=== PATIENT | male | born 1980 | race Caucasian/White ===

== ENCOUNTER 2017-06-01 10:05 | Emergency (ER) | payer SELFPAY ==
[~2017-06-01] VITALS: Ht 175.3 cm; Wt 65.8 kg
--- NOTE | 2017-06-01 10:51 | ED PSYCHIATRIC COMPLAINT ---
History of Present Illness General Chief Complaint: Psychiatric Related Complaint Stated Complaint: +SI Source: patient Exam Limitations: no limitations Allergies Uncoded Allergies: SEAFOOD (Severe, ANAPHYLAXIS 06/01/17) Triage Note: 36 Y/O MALE STATING HE HAS BEEN OFF LITHIUM X FEW WEEKS; HAS BEEN ON MED FOR 8 YEARS. STATES HE WAS RECENTLY EVALUATED AT [facility] AND STATES HE WAS SUICIDAL AT THAT TIME HOWEVER WAS DISCHARGED. PT STATES HE CONTINUES TO FEEL SUICIDAL AND NOW HAS A PLAN. STATES HE FELT GOOD ON HIS LITHIUM AND NEEDS ANOTHER PRSCRIPTION, "I WAS STABLE ON THAT". ALSO REPORTS ETOH AND COCAINE USE, MOST RECENT YESTERDAY. STATES HE HAD A SEIZURE YESTERDAY BUT WAS NOT EVALUATED FOR SAME; REPORTS HX SEIZURES "FROM THE DRUGS". REPORTS DECREASED APPETITE/PO INTAKE. PT DENIES HI. CALM AND COOPERATIVE. Triage Nurses Notes Reviewed? yes Onset: Gradual Duration: worse persistent since (1 MONTH) Timing: recent history Severity: severe Severity Numbers: 10 HPI: Patient is a 36-year-old male with history of bipolar, supposed to be on lithium presenting to the emergency department with chief complaint suicidal ideation. Patient HAS been off lithium for the past one month. He would like to start his medication back up. Denies any alcohol use. He does report that his been buying a synthetic medication on the street, something similar to a viral to help with his symptoms. He reports that if he leaves today he will kill himself by overdosing on medication. Patient denies any homicidal ideation. Patient looking for help. Patient also notes that he has a court date today and relates some distended no to court to verify his location. (FLOR BLACK,KARLEY) Vital Signs & Intake/Output Vital Signs & Intake/Output Vital Signs Date Time Temp Pulse Resp B/P B/P Pulse O2 O2 Flow FiO2 Mean Ox Delivery Rate 06/01 1537 97.1 66 18 121/66 98 Room Air 06/01 1152 Room Air 06/01 1008 96.0 96 18 152/79 98 Room Air Past History Travel History Traveled to [place] past 21 day No Medical History Any Pertinent Medical History? 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 No (KARLEY ESPOSITO) Review of Systems Review of Systems Constitutional: Reports: no symptoms. Comments Review of systems: See HPI, All other systems negative. Constitutional, no chills fever or weight loss HEENT: No visual changes no sore throat no congestion Cardiovascular: No chest pain ,palpitation , orthopnea or ankle swelling Skin, no jaundice no rashes Respiratory: No dyspnea cough sputum or hemoptysis GI: No nausea no vomiting : No dysuria No hematuria Muscle skeletal: no back pain, no neck pain, Neurologic: No numbness no confusion, no headaches Psych: Positive stress and anxiety, positive depression Heme/endocrine: No bruising no bleeding no polyuria or polydipsia Immunology: No splenectomy or history of AIDS (KARLEY ESPOSITO) Physical Exam Physical Exam General Appearance: well developed/nourished, no apparent distress, alert, awake , comfortable Neurological/Psychiatric: oriented x 3 Comments: Well-developed well-nourished person in no acute distress HEENT: Pupils equally round and reactive to light and accommodation. Nose is atraumatic. External auditory canal and Tympanic membranes clear. Pharynx normal. No swelling or edema. Neck: Normal inspection Back: Nontender Cardiovascular: Regular rate and rhythms no murmurs rubs or gallops, normal JVP Respiratory: Chest nontender. No respiratory distress.breath sounds clear to auscultation bilaterally Extremity: No edema Neuro: Alert oriented x3 Skin: No appreciable rash on exposed skin, skin is warm and dry. Psych: Mood and affect is normal, memory and judgment is normal. SAD PERSONS SAD PERSONS Response Value Male Sex? yes 1 Depression/Hopelessness? yes 2 Excessive Ethanol/Drug Use? yes 1 Social Support? has support 0 Stated Future Intent? yes 2 Total 6 SAD PERSONS Done? yes (KARLEY ESPOSITO) Progress Differential Diagnosis: drug intoxication, drug overdose, drug withdrawal, electrolyte abnormality, MALINGERING Comments: 06/01/2017 8:12:52 PM Patient deemed not a harm to self by crisis. Patient discharged, given outpatient resources. Patient was discharged by Dr. Woods at 4:30 PM, crisis updated Dr. Woods regarding this patient's disposition and Branden Woods MD discharge the patient without speaking to this provider. (FLOR BLACK,KARLEY) Plan of Care: Orders Procedure Date/time Status Regular Diet 06/01 D Active EKG 06/01 1404 Active Add-on Test (ER Only) 06/01 1220 Active LITHIUM 06/01 1210 Complete Continuous Observation Monitor 06/01 1050 Active URINE DRUG SCREEN FOR ER ONLY 06/01 1050 Complete ETHANOL 06/01 1050 Complete COMPREHENSIVE METABOLIC PANEL 06/01 1050 Complete CBC WITHOUT DIFFERENTIAL 06/01 1050 Complete ED CRISIS PSYCH CONSULT 06/01 1050 Active Laboratory Tests 06/01/17 1332: Urine Opiates Screen < 100.00, Methadone Screen < 40, Barbiturate Screen < 60, Ur Phencyclidine Scrn < 6.00, Amphetamines Screen 140, U Benzodiazepines Scrn < 85, Urine Cocaine Screen > 1000 H, Urine Cannabis Screen > 80.00 H 06/01/17 1210: Anion Gap 11, Estimated GFR > 60, BUN/Creatinine Ratio 31.1 H, Glucose 135 H, Calcium 9.0, Total Bilirubin 0.4, AST 32, ALT 34, Alkaline Phosphatase 73, Total Protein 6.4, Albumin 4.2, Globulin 2.2, Albumin/Globulin Ratio 1.9, CBC w Diff NO MAN DIFF REQ, RBC 4.65 L, MCV 89.3, MCH 30.9, RDW 13.2, MPV 7.8, Gran % 56.5 , Lymphocytes % 27.0, Monocytes % 10.5 H, Eosinophils % 5.5 H, Basophils % 0.5 , Absolute Granulocytes 3.4, Absolute Lymphocytes 1.6, Absolute Monocytes 0.6, Absolute Eosinophils 0.3, Absolute Basophils 0, PUBS MCHC 34.6, [place] < 0.2 L , Serum Alcohol < 10.0 Comments: 06/01/2017 4:37:08 PM patient has been evaluated by the speech and language clinician felt to be stable for outpatient management. (RADHA LOPEZ,BRANDEN Cerda) Departure Departure Condition: Stable Clinical Impression Primary Impression: Polysubstance abuse Referrals: THAIS LOPEZ,NITHIN Suresh (PCP/Family) Additional Instructions: Follow-up with recommendations made by crisis. Return for worsening symptoms or concerns. Departure Forms: Customer Survey General Discharge Information (KARLEY ESPOSITO) Departure Disposition: HOME OR SELF CARE (RADHA LOPEZ,BRANDEN Cerda)
[2017-06-01 12:23] LABS: ABSOLUTE BASOPHIL COUNT 0 /CUMM (0.0-0.2); ABSOLUTE EOSINOPHIL COUNT 0.3 /CUMM (0.0-0.7); ABSOLUTE GRANULOCYTE CT 3.4 /CUMM (1.4-6.5); ABSOLUTE LYMPH COUNT 1.6 /CUMM (1.2-3.4); ABSOLUTE MONOCYTE COUNT 0.6 /CUMM (0.10-0.60); BASOPHIL % 0.5 % (0.0-2.0); EOSINOPHIL % 5.5 % (0-5); GRANULOCYTE % 56.5 % (42.2-75.2); HEMATOCRIT 41.5 % (42-52); MEAN CORPUSCULAR HGB 30.9 PG (27.0-31.0); MEAN CORPUSCULAR HGB CONC 34.6 G/DL (33.0-37.0); MEAN CORPUSCULAR VOLUME 89.3 FL (80.0-94.0); MEAN PLATELET VOLUME 7.8 FL (7.4-10.4); PLATELET COUNT 238 /CUMM (130-400); RBC DISTRIBUTION WIDTH 13.2 % (11.5-14.5); RED BLOOD CELL CT 4.65 /CUMM (4.70-6.10)
[2017-06-01 12:44] LABS: LITHIUM < 0.2 mmol/L (0.6-1.2)
--- NOTE | 2017-06-01 15:12 | ED PSYCH CRISIS CONSULTATION ---
Crisis Consult Basic Assessment Date of Consult: 06/01/17 Responsible Person/Accompanied By: self Insurance Authorization: Insurance #1: Insurance name: SELF-PAY Phone number: Policy number: Group number: Authorization number: ED Provider: Patient's ED Provider: AKRLEY ESPOSITO Primary Care Physician: Patient's PCP: NITHIN PLASCENCIA MD PCP's Current Psychiatrist: none Chief Complaint: Psychiatric Related Complaint Patient's Quote: "I came here instead of court because I need to get back on my lithium." Present Illness: Pt is a 36yo male who presented to the ED requesting inpt psych tx to get back on his lithium for his bipolar disorder. Pt explains that he was supposed to go to court this morning as he is facing 4 years in custodial for various charges including disorderly conduct, violation of probation, criminal mischief, assaulting a police radio dispatcher. He explains that he does not feel he is ready to go to court until he gets back on his psych meds, so he can make appropriate decisions while in court. Pt additionally expressed that if he is discharged he will go OD to kill himself, because he needs inpt tx. He informs that he was recently at [facility] (2 weeks ago) and was discharged even thought he told them he was suicidal. Pt denies any hx of suicide attempts. When asked what kept him from killing himself after [facility] discharged him, he says a friend of his. Pt expressed that the main trigger for his suicidal thoughts was his relapse on substances. Pt says he is using synthetic drugs off the street that he does not know the name of. He also says he uses marijuana, cocaine and alcohol. Pt says that he has never has any inpt mental health tx or substance abuse tx. "The only tx I have had is medication through my primary care. I want to an intake at [facility], but never went back" Pt requested that court be faxed a letter stating that he is in the hospital. This clinician did fax court a letter as requested. Crisis also spoke to pt's Mom Bere Masters who reports that pt has a a serious substance abuse problem because he self medicates instead of taking his psych meds. she would like him to get help. Case was reviewed with Dr. Longo of psychiatry who recommended that pt be held in the ED over night for re-eval in the morning, given his positive utox for cocaine. Crisis went to explained this to pt and provided him a copy of the letter that was faxed to the court. When pt was told this pt became angry and and crumpled up the paper and threw it and says he is no longer suicidal and wanted to be discharge. Dr. Longo was informed of this and approved discharge. Pt was provided with a list of follow-up resources and told to return to an ED if he has any SI. Patient's Address: [address] [place] [address] Other Phone Number: Who Do You Live With? Mother Family/Informants Interviewed: mother Allergies - Uncoded Allergies: SEAFOOD (Severe, ANAPHYLAXIS 06/01/17) Laboratory Results: Laboratory Tests 06/01/17 1332: Urine Opiates Screen < 100.00, Methadone Screen < 40, Barbiturate Screen < 60, Ur Phencyclidine Scrn < 6.00, Amphetamines Screen 140, U Benzodiazepines Scrn < 85, Urine Cocaine Screen > 1000 H, Urine Cannabis Screen > 80.00 H 06/01/17 1210: Anion Gap 11, Estimated GFR > 60, BUN/Creatinine Ratio 31.1 H, Glucose 135 H, Calcium 9.0, Total Bilirubin 0.4, AST 32, ALT 34, Alkaline Phosphatase 73, Total Protein 6.4, Albumin 4.2, Globulin 2.2, Albumin/Globulin Ratio 1.9, CBC w Diff NO MAN DIFF REQ, RBC 4.65 L, MCV 89.3, MCH 30.9, RDW 13.2, MPV 7.8, Gran % 56.5 , Lymphocytes % 27.0, Monocytes % 10.5 H, Eosinophils % 5.5 H, Basophils % 0.5 , Absolute Granulocytes 3.4, Absolute Lymphocytes 1.6, Absolute Monocytes 0.6, Absolute Eosinophils 0.3, Absolute Basophils 0, PUBS MCHC 34.6, [place] < 0.2 L , Serum Alcohol < 10.0 Past History Past Medical History Neurological: NONE EENT: NONE Cardiovascular: NONE Respiratory: NONE Gastrointestinal: NONE Hepatic: NONE Renal: NONE Musculoskeletal: NONE Psychiatric: NONE Endocrine: NONE Blood Disorders: NONE Cancer(s): NONE 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 Past Surgical History Surgical History: non-contributory Psychosocial History Strengths/Capabilities: supportive Mom Psychiatric Treatment History Psych Treatment Psychiatric Treatment No Inpatient Treatment No Outpatient Treatment No Diagnosis by History: pt reports hx of Bipolar Substance Use/Abuse History Drug Use/Abuse Substances Used/Abused Yes Substance Used/Abused Other (list in comments) (see summary) Substance Abuse Treatment Substance Abuse Treatment Past Substance Abuse [place] No Inpatient Treatment No Outpatient Treatment No Current Mental Status Mental Status Orientation: Person, Place, Situation Affect: Angry Speech: Normal Neuro-vegetative: WNL Appearance Appearance- Dress/Hygiene: fairly groomed Behaviors Thought Process: WNL Thought Content: WNL Memory: WNL Insight: Poor SI/HI Risk Assessment Past Suicidal Ideation/Attempts Yes Current Suicidal Ideation/Att No Past Homicidal Ideation/Att: No Current Homicidal Ideation/Attempts No Degree of Intent: None Gravely Disabled: Lack of Insight, Poor Judgment Risk Factors: substance abuse, male Lethality Ratin (mild) PTSD Checklist PTSD Done? patient declined ED Management Sitter: Yes Restraints: No DSM5/PS Stressors/Medical Prob Diagnosis' (DSM 5, Stressors, Medical): Stimulant use d/o f14.20, Cannabis use d/o f12.20, Alcohol use d/o f10.20 r/o malingering Current GAF: 25 Departure Disposition Psych Medical Clearance Date: 06/01/17 Medically Cleared at: 1445 Time Started: 1445 Time Ended: 1545 Psychiatrist Consulted: Donta LOPEZ,Zeus Date Disposition Established: 06/01/17 Time Disposition Established: 1544 Plan for Disposition - Modality: list of resources provided Facility: Patient to Arrange Rationale for Disposition: pt denies SI and declines recommendations Referrals THAIS LOPEZ,NITHIN Suresh (PCP/Family)
== END 2017-06-01 18:28 ==
LOC: ERH 10:05
PROVIDERS: Physician Assistant
DX: F19.10 Other psychoactive substance abuse, uncomplicated (principal)
CPT/HCPCS: 80307; 93005; 93010; G0463; G0480